=== PATIENT | male | born 1950 | race Hispanic/Latino ===

== ENCOUNTER 2021-12-05 07:19 | Inpatient (IN) | payer MEDICARE ==
--- NOTE | 2021-12-05 08:11 | Emergency Department Report ---
ED General Adult HPI - General Chief complaint: Back Pain/Injury Stated complaint: LEFT KIDNEY PAIN Time Seen by Provider: 12/05/21 08:00 Source: patient, EMS Mode of arrival: Stretcher Limitations: Physical Limitation - History of Present Illness Initial comments: The patient presents to the emergency department via EMS from a local rehab facility for left flank pain. The Patient is a resident at [facility] for rehabilitation was sent to the emergency department due to left flank pain not improved with opioid medications at the facility. Patient states the pain has been present for the last day and describes it as sharp in nature. He denies any abdominal pain or chest pain. -: Sudden Radiation: non-radiation Severity scale (0 -10): 8 Consistency: constant Improves with: none Worsens with: none Associated Symptoms: denies other symptoms Treatments Prior to Arrival: none - Related Data Allergies Allergy/AdvReac Type Severity Reaction Status Date / Time No Known Allergies Allergy Unverified 12/05/21 11:14 ED Review of Systems ROS: Stated complaint: LEFT KIDNEY PAIN Other details as noted in HPI Comment: All other systems reviewed and negative Constitutional: denies: chills, fever Eyes: denies: eye pain, eye discharge, vision change ENT: denies: ear pain, throat pain Respiratory: denies: cough, shortness of breath, wheezing Cardiovascular: denies: chest pain, palpitations Endocrine: no symptoms reported Gastrointestinal: denies: abdominal pain, nausea, diarrhea Genitourinary: denies: urgency, dysuria Musculoskeletal: denies: back pain, joint swelling, arthralgia Skin: denies: rash, lesions Neurological: denies: headache, weakness, paresthesias Psychiatric: denies: anxiety, depression Hematological/Lymphatic: denies: easy bleeding, easy bruising ED Past Medical Hx - Past Medical History Hx Hypertension: Yes Hx CVA: Yes Hx Congestive Heart Failure: Yes Hx Psychiatric Treatment: Yes (pschizo, anxiety) Additional medical history: hemiplegia, hemiparesis, left ED Physical Exam - General Limitations: Physical Limitation General appearance: alert, in no apparent distress - Head Head exam: Present: atraumatic, normocephalic - Eye Eye exam: Present: normal appearance, PERRL, EOMI - ENT ENT exam: Present: mucous membranes moist - Neck Neck exam: Present: normal inspection - Respiratory Respiratory exam: Present: normal lung sounds bilaterally. Absent: respiratory distress - Cardiovascular Cardiovascular Exam: Present: normal rhythm, tachycardia. Absent: systolic murmur, diastolic murmur, rubs, gallop - GI/Abdominal GI/Abdominal exam: Present: soft, normal bowel sounds. Absent: distended, tenderness - Rectal Rectal exam: Present: deferred - Extremities Exam Extremities exam: Present: normal inspection - Back Exam Back exam: Present: normal inspection - Neurological Exam Neurological exam: Present: alert, oriented X3, CN II-XII intact. Absent: motor sensory deficit - Psychiatric Psychiatric exam: Present: normal affect, normal mood - Skin Skin exam: Present: warm, dry, intact, normal color. Absent: rash ED Course Vital Signs 12/05/21 12/05/21 12/05/21 07:32 07:56 07:59 Temperature 98.8 F 98.2 F Pulse Rate 80 118 H Respiratory 16 20 Rate Blood Pressure Blood Pressure 130/64 147/93 [Left] O2 Sat by Pulse 97 98 Oximetry 12/05/21 12/05/21 12/05/21 08:06 08:15 08:30 Temperature Pulse Rate 127 H 109 H 107 H Respiratory 14 28 H 21 Rate Blood Pressure 147/90 147/90 Blood Pressure [Left] O2 Sat by Pulse 98 99 Oximetry 12/05/21 12/05/21 12/05/21 08:52 09:00 09:15 Temperature Pulse Rate 103 H 101 H 103 H Respiratory 25 H 25 H 23 Rate Blood Pressure 148/91 148/91 135/84 Blood Pressure [Left] O2 Sat by Pulse 100 97 Oximetry 12/05/21 12/05/21 12/05/21 09:17 09:20 09:30 Temperature 98.4 F Pulse Rate 117 H 108 H Respiratory 22 25 H Rate Blood Pressure 134/85 135/84 Blood Pressure [Left] O2 Sat by Pulse 97 98 96 Oximetry 12/05/21 12/05/21 09:45 10:46 Temperature Pulse Rate 109 H 111 H Respiratory 26 H 21 Rate Blood Pressure 131/85 131/85 Blood Pressure [Left] O2 Sat by Pulse 97 75 L Oximetry ED Medical Decision Making - Lab Data Result diagrams: 12/05/21 08:10 12/05/21 08:10 Lab Results 12/05/21 12/05/21 12/05/21 Range/Units 08:10 08:10 08:10 WBC 17.1 H (4.5-11.0) K/mm3 RBC 4.37 (3.65-5.03) M/mm3 Hgb 12.9 (11.8-15.2) gm/dl Hct 39.9 (35.5-45.6) % MCV 91 (84-94) fl MCH 30 (28-32) pg MCHC 32 (32-34) % RDW 14.8 (13.2-15.2) % Plt Count 357 (140-440) K/mm3 Lymph % (Auto) 5.6 L (13.4-35.0) % [place] % (Auto) 6.0 (0.0-7.3) % Eos % (Auto) 0.1 (0.0-4.3) % Baso % (Auto) 0.3 (0.0-1.8) % Lymph # (Auto) 1.0 L (1.2-5.4) K/mm3 [place] # (Auto) 1.0 H (0.0-0.8) K/mm3 Eos # (Auto) 0.0 (0.0-0.4) K/mm3 Baso # (Auto) 0.0 (0.0-0.1) K/mm3 Seg Neutrophils % 88.0 H (40.0-70.0) % Seg Neutrophils # 15.1 H (1.8-7.7) K/mm3 Sodium 142 (137-145) mmol/L Potassium 3.5 L (3.6-5.0) mmol/L Chloride 103.4 (98-107) mmol/L Carbon Dioxide 25 (22-30) mmol/L Anion Gap 17 mmol/L BUN 19 (9-20) mg/dL Creatinine 1.1 (0.8-1.3) mg/dL Estimated GFR > 60 ml/min BUN/Creatinine Ratio 17 % Glucose 114 H (75-100) mg/dL Lactic Acid 1.50 (0.7-2.0) mmol/L Calcium 10.3 H (8.4-10.2) mg/dL Total Bilirubin 0.40 (0.1-1.2) mg/dL AST 20 (5-40) units/L ALT 10 (7-56) units/L Alkaline Phosphatase 123 (35-129) units/L Total Protein 8.3 H (6.3-8.2) g/dL Albumin 4.3 (3.9-5) g/dL Albumin/Globulin Ratio 1.1 % Urine Color (Yellow) Urine Turbidity (Clear) Urine pH (5.0-7.0) Ur Specific [place] (1.003-1.030) Urine Protein (Negative) mg/dL Urine Glucose (UA) (Negative) mg/dL Urine Ketones (Negative) mg/dL Urine Blood (Negative) Urine Nitrite (Negative) Urine Bilirubin (Negative) Urine Urobilinogen (<2.0) mg/dL Ur Leukocyte Esterase (Negative) Urine WBC (Auto) (0.0-6.0) /HPF Urine RBC (Auto) (0.0-6.0) /HPF U Epithel Cells (Auto) (0-13.0) /HPF Urine Mucus /HPF 12/05/21 Range/Units 10:53 WBC (4.5-11.0) K/mm3 RBC (3.65-5.03) M/mm3 Hgb (11.8-15.2) gm/dl Hct (35.5-45.6) % MCV (84-94) fl MCH (28-32) pg MCHC (32-34) % RDW (13.2-15.2) % Plt Count (140-440) K/mm3 Lymph % (Auto) (13.4-35.0) % [place] % (Auto) (0.0-7.3) % Eos % (Auto) (0.0-4.3) % Baso % (Auto) (0.0-1.8) % Lymph # (Auto) (1.2-5.4) K/mm3 [place] # (Auto) (0.0-0.8) K/mm3 Eos # (Auto) (0.0-0.4) K/mm3 Baso # (Auto) (0.0-0.1) K/mm3 Seg Neutrophils % (40.0-70.0) % Seg Neutrophils # (1.8-7.7) K/mm3 Sodium (137-145) mmol/L Potassium (3.6-5.0) mmol/L Chloride (98-107) mmol/L Carbon Dioxide (22-30) mmol/L Anion Gap mmol/L BUN (9-20) mg/dL Creatinine (0.8-1.3) mg/dL Estimated GFR ml/min BUN/Creatinine Ratio % Glucose (75-100) mg/dL Lactic Acid (0.7-2.0) mmol/L Calcium (8.4-10.2) mg/dL Total Bilirubin (0.1-1.2) mg/dL AST (5-40) units/L ALT (7-56) units/L Alkaline Phosphatase (35-129) units/L Total Protein (6.3-8.2) g/dL Albumin (3.9-5) g/dL Albumin/Globulin Ratio % Urine Color Straw (Yellow) Urine Turbidity Cloudy (Clear) Urine pH 8.0 H (5.0-7.0) Ur Specific [place] 1.010 (1.003-1.030) Urine Protein 30 mg/dl (Negative) mg/dL Urine Glucose (UA) Negative (Negative) mg/dL Urine Ketones Negative (Negative) mg/dL Urine Blood Small A (Negative) Urine Nitrite Positive (Negative) Urine Bilirubin Negative (Negative) Urine Urobilinogen < 2.0 (<2.0) mg/dL Ur Leukocyte Esterase Moderate (Negative) Urine WBC (Auto) 147.0 H (0.0-6.0) /HPF Urine RBC (Auto) 69.0 (0.0-6.0) /HPF U Epithel Cells (Auto) 1.0 (0-13.0) /HPF Urine Mucus Few /HPF - Radiology Data Radiology results: report reviewed - Medical Decision Making Patient given IV antibiotics Results discussed with patient Critical Care Time: Yes Critical care time in (mins) excluding proc time.: 35 Critical care attestation.: If time is entered above; I have spent that time in minutes in the direct care of this critically ill patient, excluding procedure time. ED Disposition Clinical Impression: Sepsis, UTI (urinary tract infection), Leukocytosis Disposition: 01 HOME / SELF CARE / HOMELESS Is pt being admited?: Yes Does the pt Need Aspirin: No Condition: Fair
[2021-12-05 08:27] LABS: Basophils % (Auto) 0.3 % (0.0-1.8); Eosinophils % (Auto) 0.1 % (0.0-4.3); Hematocrit 39.9 % (35.5-45.6); Hemoglobin 12.9 gm/dl (11.8-15.2); Lymphocytes % (Auto) 5.6 % (13.4-35.0); Mean Corpuscular HGB Conc 32 % (32-34); Mean Corpuscular Volume 91 fl (84-94); Platelet Count 357 K/mm3 (140-440); Red Blood Count 4.37 M/mm3 (3.65-5.03); Red Cell Distribution Width 14.8 % (13.2-15.2)
[2021-12-05 08:53] LABS: Alanine Aminotransferase 10 units/L (7-56); Albumin 4.3 g/dL (3.9-5); BUN/Creatinine Ratio 17; Blood Urea Nitrogen 19 mg/dL (9-20); Calcium 10.3 mg/dL (8.4-10.2); Hemolysis Index 3
--- NOTE | 2021-12-05 09:00 | Cat Scan Report ---
CT ABDOMEN AND PELVIS WITH CONTRAST INDICATION / CLINICAL INFORMATION: left flank pain. TECHNIQUE: Axial CT images were obtained through the abdomen and pelvis after IV contrast. All CT sc ans at this location are performed using CT dose reduction for ALARA by means of automated exposure c ontrol. COMPARISON: None available. FINDINGS: LOWER CHEST: Calcified left ventricular aneurysm. Small hiatal hernia. LIVER: No significant abnormality. GALLBLADDER: Calcified stone. BILE DUCTS: No significant abnormality. PANCREAS: No significant abnormality. SPLEEN: No significant abnormality. ADRENALS: No significant abnormality. RIGHT KIDNEY / URETER: No significant abnormality. LEFT KIDNEY / URETER: Distention of the renal collecting system and ureter. Mild adjacent inflammatio n. No distal obstructing stone. STOMACH / SMALL BOWEL: No significant abnormality. COLON: No significant abnormality. APPENDIX: No significant abnormality. PERITONEUM: No free fluid. No free air. No fluid collection. LYMPH NODES: Mild atherosclerotic ectasia. VASCULAR STRUCTURES: No significant abnormality. URINARY BLADDER: 5 mm stone in the bladder base on the right. REPRODUCTIVE ORGANS: No significant abnormality. ADDITIONAL FINDINGS: None. SKELETAL SYSTEM: Underlying osteopenia. Previous fixation at the left pelvis and right hip. Chronic a ppearing wedging at L1, L2 and L4. IMPRESSION: 1. Recently passed left renal stone with residual distention of the collecting system and ureter. The stone now lies within the bladder on the right. 2. Calcified left ventricular aneurysm. 3. Small hiatal hernia. 4. Calcified gallstone. Signer Name: Juan Carlos Rogers MD Signed: 12/05/2021 8:55 AM Workstation Name: [id number]
[2021-12-05 11:35] LABS: Bilirubin,Urine Negative (Negative); Blood,Urine Small (Negative); Color,Urine Straw (Yellow); Urobilinogen,Urine < 2.0 mg/dL (<2.0)
[2021-12-05 11:41] LABS: Mucus,Urine FEW /HPF
[2021-12-05] MEDS ORDERED: LIDOCAINE-MPF (1%) 10 MG/1 ML VIAL 5 ML INFILTRATI ONE (12:07)
[2021-12-05] MEDS ORDERED: cefTRIAXone/NS 2 GM/100 ML 2 GM/100 ML BAG IV SCH (13:00)
[2021-12-05] MEDS ORDERED: HYDROmorphone 0.5 MG/0.5 ML INJ IV PRN (13:19)
[2021-12-05] MEDS ORDERED: ACETAMINOPHEN 325 MG TAB PO PRN (13:19)
[2021-12-05] MEDS ORDERED: SODIUM CHLORIDE 0.9% 1000 ML IV SOLN IV ONE (13:19)
[2021-12-05] MEDS ORDERED: ONDANSETRON 4 MG/2 ML INJ IV PRN (13:19)
[2021-12-05] MEDS ORDERED: ALBUTEROL 2.5 MG/3 ML NEBU IH PRN (13:19)
[2021-12-05] MEDS: CEFEPIME/NS 2 GM/100 ML 2 GM/100 ML BAG IV SCH (14:28)
--- NOTE | 2021-12-05 14:31 | History and Physical Report ---
History of Present Illness Date of admission: 12/05/21 13:19 Chief complaint: My side hurts History of present illness: 71 YO Male [facility] Facility Resident at [facility] with Vascular Dementia, Cerebral Atherosclerosis, CVA with LHP, Schizophrenia, MICHELLE, HTN, CHF presents to ED for evaluation. Pt has diminished cognition and provides minimal history. Patient reports reports "my side hurts". Additional history taken from ED staff, EMS staff, as well as snf facility staff. Patient reported flank pain today. EMS was notified and upon arrival t he patient was found to be in distress and subsequent transported to [facility] for further care and evaluation of the aforementioned symptoms. The patient was seen and evaluated in the emergency department. All lab and imaging studies reviewed. Patient found to have sepsis suspected secondary to urinary tract infection. Patient admitted to medical floor and initiated on sepsis protocol. No reports of fever, chills, chest pain, palpitation, productive cough, skin rash, recent contact, known exposure to COVID-19. No prior admission for review. No medication listed at time of admission for reconciliation. Advanced care planning conducted in ED. Patient has diminished cognition but has a posi tive gag reflex and is able to protect his airway without difficulty at the time my evaluation. Past History Past Medical History: heart failure, hypertension, stroke Past Surgical History: No surgical history, Other (Reviewed) Social history: single. denies: smoking, alcohol abuse, prescription drug abuse, IV drug use Family history: denies: diabetes, hypertension Medications and Allergies Allergies Allergy/AdvReac Type Severity Reaction Status Date / Time No Known Allergies Allergy Unverified 12/05/21 11:14 Active Meds: Active Medications Acetaminophen (Acetaminophen 325 Mg Tab) 650 mg PO Q4H PRN PRN Reason: Pain MILD(1-3)/Fever >100.5/BOYCE Albuterol (Albuterol 2.5 Mg/3 Ml Nebu) 2.5 mg IH Q4HRT PRN PRN Reason: Shortness Of Breath Hydromorphone HCl (Hydromorphone 0.5 Mg/0.5 Ml Inj) 0.5 mg IV Q23H PRN PRN Reason: Pain , Severe (7-10) Ceftriaxone Sodium (Rocephin/Ns 2 Gm/100 Ml) 2 gm in 100 mls @ 200 mls/hr IV ONCE@1300 MIHAELA Stop: 12/05/21 16:00 Last Admin: 12/05/21 13:08 Dose: 200 mls/hr Cefepime HCl (Cefepime/Ns 2 Gm/100 Ml) 2 gm in 100 mls @ 200 mls/hr IV Q12H [facility]; Protocol Ondansetron HCl (Ondansetron 4 Mg/2 Ml Inj) 4 mg IV Q8H PRN PRN Reason: Nausea And Vomiting Oxycodone/Acetaminophen (Oxycodone /Acetaminophen 5-325mg Tab) 1 tab PO Q6H PRN PRN Reason: Pain, Moderate (4-6) Sodium Chloride (Sodium Chloride 0.9% 10 Ml Flush Syringe) 10 ml IV BID MIHAELA Sodium Chloride (Sodium Chloride 0.9% 10 Ml Flush Syringe) 10 ml IV PRN PRN PRN Reason: LINE FLUSH Review of Systems ROS unobtainable: due to mental status Exam - Constitutional Vitals: Temp Pulse Resp BP Pulse Ox 98.4 F 91 H 20 129/73 97 12/05/21 09:20 12/05/21 13:15 12/05/21 13:15 12/05/21 13:15 12/05/21 13:15 General appearance: Present: mild distress - EENT Eyes: Present: PERRL ENT: hearing intact, clear oral mucosa - Neck Neck: Present: supple, normal ROM - Respiratory Respiratory effort: normal Respiratory: bilateral: CTA - Cardiovascular Heart Sounds: Present: S1 & S2. Absent: rub, click - Extremities Extremities: pulses symmetrical, No edema Peripheral Pulses: abnormal (Capillary refill greater than 3.5 seconds) - Abdominal General gastrointestinal: Present: soft, non-tender, non-distended, normal bowel sounds Male genitourinary: Present: normal - Integumentary Integumentary: Present: dry, clammy, decreased turgor - Musculoskeletal Musculoskeletal: left sided weakness, generalized weakness - Psychiatric Psychiatric: cooperative - Neurologic Neurologic: CNII-XII intact, moves all extremities Results - Labs CBC & Chem 7: 12/05/21 08:10 12/05/21 08:10 Labs: Abnormal lab results 12/05/21 12/05/21 12/05/21 Range/Units 08:10 08:10 10:53 WBC 17.1 H (4.5-11.0) K/mm3 Lymph % (Auto) 5.6 L (13.4-35.0) % Lymph # (Auto) 1.0 L (1.2-5.4) K/mm3 [place] # (Auto) 1.0 H (0.0-0.8) K/mm3 Seg Neutrophils % 88.0 H (40.0-70.0) % Seg Neutrophils # 15.1 H (1.8-7.7) K/mm3 Potassium 3.5 L (3.6-5.0) mmol/L Glucose 114 H (75-100) mg/dL Calcium 10.3 H (8.4-10.2) mg/dL Total Protein 8.3 H (6.3-8.2) g/dL Urine pH 8.0 H (5.0-7.0) Urine Blood Small A (Negative) Urine WBC (Auto) 147.0 H (0.0-6.0) /HPF Assessment and Plan - Patient Problems (1) Sepsis Current Visit: Yes Status: Acute Plan to address problem: Sepsis protocol: Chest x-ray, urinalysis, CBC, CMP, IV antibiotic therapy, IV fluid resuscitation therapy, monitor urine output every shift, monitor fluid balance, serial lactic acid level, blood culture, maintain mean arterial pressure greater than or equal to 65. (2) UTI (urinary tract infection) Current Visit: Yes Status: Acute Qualifiers: Encounter type: initial encounter Plan to address problem: Urinalysis, IV antibiotic therapy, supportive care. (3) Vascular dementia Current Visit: Yes Status: Acute Qualifiers: Dementia behavioral disturbance: without behavioral disturbance Qualified Code(s): F01.50 - Vascular dementia without behavioral disturbance Plan to address problem: Verbal prompting, verbal redirection, benzodiazepine therapy as clinical indicated. (4) Cerebral atherosclerosis Current Visit: Yes Status: Acute Plan to address problem: Risk factor reduction, antiplatelet therapy as clinically indicated. (5) Hypertension Current Visit: Yes Status: Acute Qualifiers: Hypertension type: primary hypertension Qualified Code(s): I10 - Essential (primary) hypertension Plan to address problem: Monitor blood pressure every shift, continue medical management. (6) CHF (congestive heart failure) Current Visit: Yes Status: Acute Qualifiers: Heart failure type: systolic Heart failure chronicity: chronic Qualified Code(s): I50.22 - Chronic systolic (congestive) heart failure Plan to address problem: No acute exacerbation at this time, continue supportive care. (7) DVT prophylaxis Current Visit: Yes Status: Acute Plan to address problem: SCD to bilateral lower extremities while in bed, prophylactic anticoagulation. (8) Advance care planning Current Visit: Yes Status: Acute Plan to address problem: Disease education done, care plan discussed, diagnosis discussed, prognosis discussed, patient is full code. +30 minutes. (9) Preventative health care Current Visit: Yes Status: Acute Plan to address problem: Patient counseled regarding medication compliance, compliance with care, and home safety. +30 minutes.
[2021-12-05] MEDS: HEPARIN 5,000 UNIT/1 ML VIAL SUB-Q SCH (22:37)
[2021-12-06] MEDS: SODIUM CHLORIDE 0.9% 1000 ML 1,000 ML IV SCH ×2 (02:00→16:31)
[2021-12-06] MEDS: CEFEPIME/NS 2 GM/100 ML 2 GM/100 ML BAG IV SCH ×2 (02:40→12:59)
[2021-12-06 05:39] LABS: Basophils % (Auto) 0.3 % (0.0-1.8); Hematocrit 36.4 % (35.5-45.6); Hemoglobin 11.6 gm/dl (11.8-15.2); Lymphocytes # (Auto) 1.2 K/mm3 (1.2-5.4); Mean Corpuscular HGB Conc 32 % (32-34); Mean Corpuscular Volume 92 fl (84-94); Platelet Count 297 K/mm3 (140-440); Red Blood Count 3.96 M/mm3 (3.65-5.03); Red Cell Distribution Width 15.5 % (13.2-15.2)
[2021-12-06 06:04] LABS: BUN/Creatinine Ratio 15; Blood Urea Nitrogen 17 mg/dL (9-20); Calcium 9.2 mg/dL (8.4-10.2); Hemolysis Index 0
[2021-12-06] MEDS: oxyCODONE /ACETAMINOPHEN 5-325MG TAB PO PRN ×2 (09:31→16:31)
[2021-12-06] MEDS: HEPARIN 5,000 UNIT/1 ML VIAL SUB-Q SCH ×2 (09:32→21:58)
--- NOTE | 2021-12-06 09:44 | Progress Note ---
Assessment and Plan Assessment and plan: 71 YO Male [facility] Facility Resident at [facility] with Vascular Dementia, Cerebral Atherosclerosis, CVA with LHP, Schizophrenia, MICHELLE, HTN, CHF presents to ED for evaluation of flank pain the day [employer]. EMS was notified and upon arrival the patient was found to be in distress and subsequent transported to [facility] for further care and evaluation of the aforementioned symptoms. The patient was seen and evaluated in the emergency department. All lab and imaging studies reviewed. Patient found to have sepsis suspected secondary to urinary tract infection. Patient admitted to medical floor and initiated on sepsis protocol. Sepsis UTI Vascular dementia Cerebral atherosclerosis 12/06/2021. Patient admitted with sepsis and UTI. We will follow-up blood and urine cultures. Continue IV antibiotics and monitor closely. Patient does have lactic acidosis as well as leukocytosis. Continue to monitor laboratories for improvement History Interval history: No new issues overnight Hospitalist Physical - Constitutional Vitals: Temp Pulse Resp BP Pulse Ox 98.4 F 65 12 129/81 99 12/06/21 04:00 12/06/21 02:01 12/06/21 02:01 12/06/21 02:01 12/06/21 09:22 General appearance: Present: no acute distress - EENT Eyes: Present: PERRL, EOM intact ENT: hearing intact, clear oral mucosa, dentition normal - Neck Neck: Present: supple, normal ROM - Respiratory Respiratory effort: normal Respiratory: bilateral: CTA - Cardiovascular Rhythm: regular Heart Sounds: Present: S1 & S2. Absent: gallop, rub - Extremities Extremities: no ischemia, No edema, Full ROM - Abdominal General gastrointestinal: soft, non-tender, non-distended, normal bowel sounds - Integumentary Integumentary: Present: clear, warm, dry - Neurologic Neurologic: CNII-XII intact, moves all extremities Results - Labs CBC & Chem 7: 12/06/21 04:34 12/06/21 04:34 Labs: Laboratory Last Values WBC 16.7 K/mm3 (4.5-11.0) H 12/06/21 04:34 RBC 3.96 M/mm3 (3.65-5.03) 12/06/21 04:34 Hgb 11.6 gm/dl (11.8-15.2) L 12/06/21 04:34 Hct 36.4 % (35.5-45.6) 12/06/21 04:34 MCV 92 fl (84-94) 12/06/21 04:34 MCH 29 pg (28-32) 12/06/21 04:34 MCHC 32 % (32-34) 12/06/21 04:34 RDW 15.5 % (13.2-15.2) H 12/06/21 04:34 Plt Count 297 K/mm3 (140-440) 12/06/21 04:34 Lymph % (Auto) 7.0 % (13.4-35.0) L 12/06/21 04:34 [place] % (Auto) 6.0 % (0.0-7.3) 12/06/21 04:34 Eos % (Auto) 0.0 % (0.0-4.3) 12/06/21 04:34 Baso % (Auto) 0.3 % (0.0-1.8) 12/06/21 04:34 Lymph # (Auto) 1.2 K/mm3 (1.2-5.4) 12/06/21 04:34 [place] # (Auto) 1.0 K/mm3 (0.0-0.8) H 12/06/21 04:34 Eos # (Auto) 0.0 K/mm3 (0.0-0.4) 12/06/21 04:34 Baso # (Auto) 0.0 K/mm3 (0.0-0.1) 12/06/21 04:34 Seg Neutrophils % 86.7 % (40.0-70.0) H 12/06/21 04:34 Seg Neutrophils # 14.5 K/mm3 (1.8-7.7) H 12/06/21 04:34 Sodium 141 mmol/L (137-145) 12/06/21 04:34 Potassium 3.6 mmol/L (3.6-5.0) 12/06/21 04:34 Chloride 105.6 mmol/L (98-107) 12/06/21 04:34 Carbon Dioxide 22 mmol/L (22-30) 12/06/21 04:34 Anion Gap 17 mmol/L 12/06/21 04:34 BUN 17 mg/dL (9-20) 12/06/21 04:34 Creatinine 1.1 mg/dL (0.8-1.3) 12/06/21 04:34 Estimated GFR > 60 ml/min 12/06/21 04:34 BUN/Creatinine Ratio 15 % 12/06/21 04:34 Glucose 170 mg/dL (75-100) H 12/06/21 04:34 Lactic Acid 3.50 mmol/L (0.7-2.0) H* 12/06/21 07:05 Calcium 9.2 mg/dL (8.4-10.2) 12/06/21 04:34 Total Bilirubin 0.40 mg/dL (0.1-1.2) 12/05/21 08:10 AST 20 units/L (5-40) 12/05/21 08:10 ALT 10 units/L (7-56) 12/05/21 08:10 Alkaline Phosphatase 123 units/L (35-129) 12/05/21 08:10 Total Protein 8.3 g/dL (6.3-8.2) H 12/05/21 08:10 Albumin 4.3 g/dL (3.9-5) 12/05/21 08:10 Albumin/Globulin Ratio 1.1 % 12/05/21 08:10 Urine Color Straw (Yellow) 12/05/21 10:53 Urine Turbidity Cloudy (Clear) 12/05/21 10:53 Urine pH 8.0 (5.0-7.0) H 12/05/21 10:53 Ur Specific [place] 1.010 (1.003-1.030) 12/05/21 10:53 Urine Protein 30 mg/dl mg/dL (Negative) 12/05/21 10:53 Urine Glucose (UA) Negative mg/dL (Negative) 12/05/21 10:53 Urine Ketones Negative mg/dL (Negative) 12/05/21 10:53 Urine Blood Small (Negative) A 12/05/21 10:53 Urine Nitrite Positive (Negative) 12/05/21 10:53 Urine Bilirubin Negative (Negative) 12/05/21 10:53 Urine Urobilinogen < 2.0 mg/dL (<2.0) 12/05/21 10:53 Ur Leukocyte Esterase Moderate (Negative) 12/05/21 10:53 Urine WBC (Auto) 147.0 /HPF (0.0-6.0) H 12/05/21 10:53 Urine RBC (Auto) 69.0 /HPF (0.0-6.0) 12/05/21 10:53 U Epithel Cells (Auto) 1.0 /HPF (0-13.0) 12/05/21 10:53 Urine Mucus Few /HPF 12/05/21 10:53 Blood Type O POSITIVE 12/05/21 21:00 Antibody Screen Negative 12/05/21 21:00 Microbiology: Microbiology 12/05/21 08:10 Peripheral/Venous Blood Culture - Preliminary 12/05/21 08:10 Peripheral/Venous Blood Culture - Preliminary Culture in Progress Snyder/IV: Voiding Method Urinal Active Medications - Current Medications Current Medications: Generic Name Dose Route Start Last Admin Trade Name Freq PRN Reason Stop Dose Admin Acetaminophen 650 mg 12/05/21 13:19 Acetaminophen 325 Mg Tab PO Q4H PRN Pain MILD(1-3)/Fever >100.5/BOYCE Albuterol 2.5 mg 12/05/21 13:19 Albuterol 2.5 Mg/3 Ml Nebu IH Q4HRT PRN Shortness Of Breath Heparin Sodium (Porcine) 5,000 unit 12/05/21 22:00 12/06/21 09:32 Heparin 5,000 Unit/1 Ml Vial SUB-Q 5,000 unit Q12HR MIHAELA Administration Hydromorphone HCl 0.5 mg 12/05/21 13:19 12/06/21 02:57 Hydromorphone 0.5 Mg/0.5 Ml Inj IV 0.5 mg Q23H PRN Administration Pain , Severe (7-10) Cefepime HCl 2 gm in 100 mls @ 200 mls/hr 12/05/21 14:00 12/06/21 02:40 Cefepime/Ns 2 Gm/100 Ml IV 200 mls/hr Q12H MIHAELA Administration Protocol Sodium Chloride 1,000 mls @ 75 mls/hr 12/06/21 01:30 12/06/21 02:00 Nacl 0.9% 1000 Ml IV 75 mls/hr DIRECT MIHAELA Administration Ondansetron HCl 4 mg 12/05/21 13:19 Ondansetron 4 Mg/2 Ml Inj IV Q8H PRN Nausea And Vomiting Oxycodone/Acetaminophen 1 tab 12/05/21 13:19 12/06/21 09:31 Oxycodone /Acetaminophen 5-325mg Tab PO 1 tab Q6H PRN Administration Pain, Moderate (4-6) Sodium Chloride 10 ml 12/05/21 22:00 12/06/21 09:32 Sodium Chloride 0.9% 10 Ml Flush Syringe IV 10 ml BID MHIAELA Administration Sodium Chloride 10 ml 12/05/21 13:19 Sodium Chloride 0.9% 10 Ml Flush Syringe IV PRN PRN LINE FLUSH
[2021-12-07] MEDS: CEFEPIME/NS 2 GM/100 ML 2 GM/100 ML BAG IV SCH ×2 (02:33→17:33)
[2021-12-07 07:04] LABS: Basophils % (Auto) 0.3 % (0.0-1.8); Hematocrit 31.9 % (35.5-45.6); Hemoglobin 10.6 gm/dl (11.8-15.2); Lymphocytes # (Auto) 1.2 K/mm3 (1.2-5.4); Mean Corpuscular HGB Conc 33 % (32-34); Mean Corpuscular Volume 91 fl (84-94); Monocytes # (Auto) 0.6 K/mm3 (0.0-0.8); Platelet Count 197 K/mm3 (140-440); Red Blood Count 3.53 M/mm3 (3.65-5.03); Red Cell Distribution Width 15.8 % (13.2-15.2)
[2021-12-07 07:24] LABS: BUN/Creatinine Ratio 13; Blood Urea Nitrogen 12 mg/dL (9-20); Calcium 8.8 mg/dL (8.4-10.2); Hemolysis Index 0
[2021-12-07] MEDS: SODIUM CHLORIDE 0.9% 1000 ML 1,000 ML IV SCH ×2 (08:20→22:17)
--- NOTE | 2021-12-07 08:55 | Progress Note ---
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 EMS was notified and upon arrival the patient was found to be in distress and subsequent transported to [facility] for further care and evaluation of the aforementioned symptoms. The patient was seen and evaluated in the emergency department. All lab and imaging studies reviewed. Patient found to have sepsis suspected secondary to urinary tract infection. Patient admitted to medical floor and initiated on sepsis protocol. Sepsis UTI Vascular dementia Cerebral atherosclerosis 12/06/2021. Patient admitted with sepsis and UTI. We will follow-up blood and urine cultures. Continue IV antibiotics and monitor closely. Patient does have lactic acidosis as well as leukocytosis. Continue to monitor laboratories for improvement 12/07/2021. Continue IV antibiotics and follow-up blood cultures. Blood culture negative x24 hours. Lactic acidosis resolved. Follow-up urine culture History Interval history: No new issues overnight Hospitalist Physical - Constitutional Vitals: Temp Pulse Resp BP Pulse Ox 99.3 F 72 17 121/72 97 12/07/21 04:50 12/07/21 04:50 12/07/21 04:50 12/07/21 04:50 12/07/21 04:50 General appearance: Present: no acute distress - EENT Eyes: Present: PERRL, EOM intact ENT: hearing intact, clear oral mucosa, dentition normal - Neck Neck: Present: supple, normal ROM - Respiratory Respiratory effort: normal Respiratory: bilateral: CTA - Cardiovascular Rhythm: regular Heart Sounds: Present: S1 & S2. Absent: gallop, rub - Extremities Extremities: no ischemia, No edema, Full ROM - Abdominal General gastrointestinal: soft, non-tender, non-distended, normal bowel sounds - Integumentary Integumentary: Present: clear, warm, dry - Neurologic Neurologic: CNII-XII intact, moves all extremities Results - Labs CBC & Chem 7: 12/07/21 06:07 12/07/21 06:07 Labs: Laboratory Last Values WBC 9.9 K/mm3 (4.5-11.0) 12/07/21 06:07 RBC 3.53 M/mm3 (3.65-5.03) L 12/07/21 06:07 Hgb 10.6 gm/dl (11.8-15.2) L 12/07/21 06:07 Hct 31.9 % (35.5-45.6) L 12/07/21 06:07 MCV 91 fl (84-94) 12/07/21 06:07 MCH 30 pg (28-32) 12/07/21 06:07 MCHC 33 % (32-34) 12/07/21 06:07 RDW 15.8 % (13.2-15.2) H 12/07/21 06:07 Plt Count 197 K/mm3 (140-440) 12/07/21 06:07 Lymph % (Auto) 12.0 % (13.4-35.0) L 12/07/21 06:07 [place] % (Auto) 6.0 % (0.0-7.3) 12/07/21 06:07 Eos % (Auto) 0.0 % (0.0-4.3) 12/07/21 06:07 Baso % (Auto) 0.3 % (0.0-1.8) 12/07/21 06:07 Lymph # (Auto) 1.2 K/mm3 (1.2-5.4) 12/07/21 06:07 [place] # (Auto) 0.6 K/mm3 (0.0-0.8) 12/07/21 06:07 Eos # (Auto) 0.0 K/mm3 (0.0-0.4) 12/07/21 06:07 Baso # (Auto) 0.0 K/mm3 (0.0-0.1) 12/07/21 06:07 Seg Neutrophils % 81.7 % (40.0-70.0) H 12/07/21 06:07 Seg Neutrophils # 8.1 K/mm3 (1.8-7.7) H 12/07/21 06:07 Sodium 139 mmol/L (137-145) 12/07/21 06:07 Potassium 3.2 mmol/L (3.6-5.0) L 12/07/21 06:07 Chloride 105.1 mmol/L (98-107) 12/07/21 06:07 Carbon Dioxide 22 mmol/L (22-30) 12/07/21 06:07 Anion Gap 15 mmol/L 12/07/21 06:07 BUN 12 mg/dL (9-20) 12/07/21 06:07 Creatinine 0.9 mg/dL (0.8-1.3) 12/07/21 06:07 Estimated GFR > 60 ml/min 12/07/21 06:07 BUN/Creatinine Ratio 13 % 12/07/21 06:07 Glucose 107 mg/dL (75-100) H 12/07/21 06:07 Lactic Acid 1.90 mmol/L (0.7-2.0) 12/06/21 11:28 Calcium 8.8 mg/dL (8.4-10.2) 12/07/21 06:07 Total Bilirubin 0.40 mg/dL (0.1-1.2) 12/05/21 08:10 AST 20 units/L (5-40) 12/05/21 08:10 ALT 10 units/L (7-56) 12/05/21 08:10 Alkaline Phosphatase 123 units/L (35-129) 12/05/21 08:10 Total Protein 8.3 g/dL (6.3-8.2) H 12/05/21 08:10 Albumin 4.3 g/dL (3.9-5) 12/05/21 08:10 Albumin/Globulin Ratio 1.1 % 12/05/21 08:10 Urine Color Straw (Yellow) 12/05/21 10:53 Urine Turbidity Cloudy (Clear) 12/05/21 10:53 Urine pH 8.0 (5.0-7.0) H 12/05/21 10:53 Ur Specific [place] 1.010 (1.003-1.030) 12/05/21 10:53 Urine Protein 30 mg/dl mg/dL (Negative) 12/05/21 10:53 Urine Glucose (UA) Negative mg/dL (Negative) 12/05/21 10:53 Urine Ketones Negative mg/dL (Negative) 12/05/21 10:53 Urine Blood Small (Negative) A 12/05/21 10:53 Urine Nitrite Positive (Negative) 12/05/21 10:53 Urine Bilirubin Negative (Negative) 12/05/21 10:53 Urine Urobilinogen < 2.0 mg/dL (<2.0) 12/05/21 10:53 Ur Leukocyte Esterase Moderate (Negative) 12/05/21 10:53 Urine WBC (Auto) 147.0 /HPF (0.0-6.0) H 12/05/21 10:53 Urine RBC (Auto) 69.0 /HPF (0.0-6.0) 12/05/21 10:53 U Epithel Cells (Auto) 1.0 /HPF (0-13.0) 12/05/21 10:53 Urine Mucus Few /HPF 12/05/21 10:53 Blood Type O POSITIVE 12/05/21 21:00 Antibody Screen Negative 12/05/21 21:00 Microbiology: Microbiology 12/05/21 08:10 Peripheral/Venous Blood Culture - Preliminary 12/05/21 08:10 Peripheral/Venous Blood Culture - Preliminary NO GROWTH AFTER 24 HOURS Snyder/IV: Voiding Method Condom Catheter Active Medications - Current Medications Current Medications: Generic Name Dose Route Start Last Admin Trade Name Freq PRN Reason Stop Dose Admin Acetaminophen 650 mg 12/05/21 13:19 Acetaminophen 325 Mg Tab PO Q4H PRN Pain MILD(1-3)/Fever >100.5/BOYCE Albuterol 2.5 mg 12/05/21 13:19 Albuterol 2.5 Mg/3 Ml Nebu IH Q4HRT PRN Shortness Of Breath Heparin Sodium (Porcine) 5,000 unit 12/05/21 22:00 12/06/21 21:58 Heparin 5,000 Unit/1 Ml Vial SUB-Q 5,000 unit Q12HR MIHAELA Administration Hydromorphone HCl 0.5 mg 12/05/21 13:19 12/06/21 02:57 Hydromorphone 0.5 Mg/0.5 Ml Inj IV 0.5 mg Q23H PRN Administration Pain , Severe (7-10) Cefepime HCl 2 gm in 100 mls @ 200 mls/hr 12/05/21 14:00 12/07/21 02:33 Cefepime/Ns 2 Gm/100 Ml IV 200 mls/hr Q12H MIHAELA Administration Protocol Sodium Chloride 1,000 mls @ 75 mls/hr 12/06/21 01:30 12/07/21 08:20 Nacl 0.9% 1000 Ml IV 75 mls/hr DIRECT MIHAELA Administration Ondansetron HCl 4 mg 12/05/21 13:19 Ondansetron 4 Mg/2 Ml Inj IV Q8H PRN Nausea And Vomiting Oxycodone/Acetaminophen 1 tab 12/05/21 13:19 12/06/21 16:31 Oxycodone /Acetaminophen 5-325mg Tab PO 1 tab Q6H PRN Administration Pain, Moderate (4-6) Sodium Chloride 10 ml 12/05/21 22:00 12/06/21 21:58 Sodium Chloride 0.9% 10 Ml Flush Syringe IV 10 ml BID MIHAELA Administration Sodium Chloride 10 ml 12/05/21 13:19 Sodium Chloride 0.9% 10 Ml Flush Syringe IV PRN PRN LINE FLUSH Nutrition/Malnutrition Assess - Dietary Evaluation Nutrition/Malnutrition Findings: Nutrition Notes Start: 12/06/21 14:05 Freq: Status: Active Protocol: Document 12/06/21 14:05 CHICO (Rec: 12/06/21 14:13 CHICO [id number]) Nutrition Notes 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 Pt from [place]. He consumed 50% of two meals today. Percent of energy/protein needs met: 66% energy 55% pro Burn Absent Trauma Absent Skin Integrity/Comment Mtaeus score: 13 Current % PO Fair (50-74%) Reduced Machine Ii Coremaker Strength Measurably Reduced (severe) #1 Nutrition Diagnosis Underweight Etiology advanced age, vascular dementia As Evidenced by Signs and Symptoms BMI 19.7 Is patient on ventilator? No Is Patient Ambulatory and/or Out of Bed No REE-([facility]-confined to bed) 1688.568 Kcal/Kg value to use for calculation 30 Approximate Energy Requirements Using 1914 kcal/Kg Calculation Used for Recommendations Kcal/kg Additional Notes Pro needs 1.2-1.5g/k-96g/ day Fluid needs 1ml/kcal Nutrition Intervention Change Diet Order: Continue current diet order Add Supplement/Snack (indicate name/kcal Ensure Enlive BID /protein ) Provides kCal: 700 Provides Protein (gm) 40 Goal #1 PO intake of meals plus ONS to meet 100% energy and pro needs Goal #2 Wt maintenance and/or gain Anticipated Discharge Needs: Continue ONS 1-2 times daily for wt maintenance Follow-Up By: 12/09/21 Additional Comments F/U: intakes (meals/ONS)
[2021-12-07] MEDS: oxyCODONE /ACETAMINOPHEN 5-325MG TAB PO PRN ×2 (12:47→22:11)
[2021-12-07] MEDS: HEPARIN 5,000 UNIT/1 ML VIAL SUB-Q SCH ×2 (12:47→22:12)
[2021-12-08] MEDS: CEFEPIME/NS 2 GM/100 ML 2 GM/100 ML BAG IV SCH ×2 (02:26→18:44)
[2021-12-08 05:15] LABS: Basophils # (Auto) 0.1 K/mm3 (0.0-0.1); Basophils % (Auto) 0.8 % (0.0-1.8); Eosinophils % (Auto) 0.5 % (0.0-4.3); Hematocrit 31.8 % (35.5-45.6); Hemoglobin 10.5 gm/dl (11.8-15.2); Lymphocytes # (Auto) 1.7 K/mm3 (1.2-5.4); Lymphocytes % (Auto) 23.2 % (13.4-35.0); Mean Corpuscular HGB Conc 33 % (32-34); Mean Corpuscular Volume 91 fl (84-94); Monocytes # (Auto) 0.7 K/mm3 (0.0-0.8); Monocytes % (Auto) 9.3 % (0.0-7.3); Platelet Count 179 K/mm3 (140-440); Red Blood Count 3.51 M/mm3 (3.65-5.03); Red Cell Distribution Width 15.6 % (13.2-15.2)
[2021-12-08 05:28] LABS: BUN/Creatinine Ratio 14; Blood Urea Nitrogen 11 mg/dL (9-20); Calcium 8.7 mg/dL (8.4-10.2); Hemolysis Index 1
[2021-12-08] MEDS: oxyCODONE /ACETAMINOPHEN 5-325MG TAB PO PRN ×3 (10:45→22:59)
[2021-12-08] MEDS: HEPARIN 5,000 UNIT/1 ML VIAL SUB-Q SCH ×2 (10:45→21:36)
--- NOTE | 2021-12-08 10:56 | Progress Note ---
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 EMS was notified and upon arrival the patient was found to be in distress and subsequent transported to [facility] for further care and evaluation of the aforementioned symptoms. The patient was seen and evaluated in the emergency department. All lab and imaging studies reviewed. Patient found to have sepsis suspected secondary to urinary tract infection. Patient admitted to medical floor and initiated on sepsis protocol. Sepsis UTI Vascular dementia Cerebral atherosclerosis 12/06/2021. Patient admitted with sepsis and UTI. We will follow-up blood and urine cultures. Continue IV antibiotics and monitor closely. Patient does have lactic acidosis as well as leukocytosis. Continue to monitor laboratories for improvement 12/07/2021. Continue IV antibiotics and follow-up blood cultures. Blood culture negative x24 hours. Lactic acidosis resolved. Follow-up urine culture 12/08/2021. Continue IV antibiotics and follow-up cultures. Blood cultures are negative x72 hours. Anticipate discharge back to [facility] in a.m. History Interval history: No new issues overnight Hospitalist Physical - Constitutional Vitals: Temp Pulse Resp BP Pulse Ox 98.6 F 65 18 151/71 97 12/08/21 06:19 12/08/21 06:21 12/08/21 06:19 12/08/21 06:19 12/08/21 06:21 General appearance: Present: no acute distress - EENT Eyes: Present: PERRL, EOM intact ENT: hearing intact, clear oral mucosa, dentition normal - Neck Neck: Present: supple, normal ROM - Respiratory Respiratory effort: normal Respiratory: bilateral: CTA - Cardiovascular Rhythm: regular Heart Sounds: Present: S1 & S2. Absent: gallop, rub - Extremities Extremities: no ischemia, No edema, Full ROM - Abdominal General gastrointestinal: soft, non-tender, non-distended, normal bowel sounds - Integumentary Integumentary: Present: clear, warm, dry - Neurologic Neurologic: CNII-XII intact, moves all extremities Results - Labs CBC & Chem 7: 12/08/21 03:07 12/08/21 03:07 Labs: Laboratory Last Values WBC 7.2 K/mm3 (4.5-11.0) 12/08/21 03:07 RBC 3.51 M/mm3 (3.65-5.03) L 12/08/21 03:07 Hgb 10.5 gm/dl (11.8-15.2) L 12/08/21 03:07 Hct 31.8 % (35.5-45.6) L 12/08/21 03:07 MCV 91 fl (84-94) 12/08/21 03:07 MCH 30 pg (28-32) 12/08/21 03:07 MCHC 33 % (32-34) 12/08/21 03:07 RDW 15.6 % (13.2-15.2) H 12/08/21 03:07 Plt Count 179 K/mm3 (140-440) 12/08/21 03:07 Lymph % (Auto) 23.2 % (13.4-35.0) 12/08/21 03:07 [place] % (Auto) 9.3 % (0.0-7.3) H 12/08/21 03:07 Eos % (Auto) 0.5 % (0.0-4.3) 12/08/21 03:07 Baso % (Auto) 0.8 % (0.0-1.8) 12/08/21 03:07 Lymph # (Auto) 1.7 K/mm3 (1.2-5.4) 12/08/21 03:07 [place] # (Auto) 0.7 K/mm3 (0.0-0.8) 12/08/21 03:07 Eos # (Auto) 0.0 K/mm3 (0.0-0.4) 12/08/21 03:07 Baso # (Auto) 0.1 K/mm3 (0.0-0.1) 12/08/21 03:07 Seg Neutrophils % 66.2 % (40.0-70.0) 12/08/21 03:07 Seg Neutrophils # 4.8 K/mm3 (1.8-7.7) 12/08/21 03:07 Sodium 140 mmol/L (137-145) 12/08/21 03:07 Potassium 3.1 mmol/L (3.6-5.0) L 12/08/21 03:07 Chloride 105.7 mmol/L (98-107) 12/08/21 03:07 Carbon Dioxide 24 mmol/L (22-30) 12/08/21 03:07 Anion Gap 13 mmol/L 12/08/21 03:07 BUN 11 mg/dL (9-20) 12/08/21 03:07 Creatinine 0.8 mg/dL (0.8-1.3) 12/08/21 03:07 Estimated GFR > 60 ml/min 12/08/21 03:07 BUN/Creatinine Ratio 14 % 12/08/21 03:07 Glucose 95 mg/dL (75-100) 12/08/21 03:07 Lactic Acid 1.90 mmol/L (0.7-2.0) 12/06/21 11:28 Calcium 8.7 mg/dL (8.4-10.2) 12/08/21 03:07 Total Bilirubin 0.40 mg/dL (0.1-1.2) 12/05/21 08:10 AST 20 units/L (5-40) 12/05/21 08:10 ALT 10 units/L (7-56) 12/05/21 08:10 Alkaline Phosphatase 123 units/L (35-129) 12/05/21 08:10 Total Protein 8.3 g/dL (6.3-8.2) H 12/05/21 08:10 Albumin 4.3 g/dL (3.9-5) 12/05/21 08:10 Albumin/Globulin Ratio 1.1 % 12/05/21 08:10 Urine Color Straw (Yellow) 12/05/21 10:53 Urine Turbidity Cloudy (Clear) 12/05/21 10:53 Urine pH 8.0 (5.0-7.0) H 12/05/21 10:53 Ur Specific [place] 1.010 (1.003-1.030) 12/05/21 10:53 Urine Protein 30 mg/dl mg/dL (Negative) 12/05/21 10:53 Urine Glucose (UA) Negative mg/dL (Negative) 12/05/21 10:53 Urine Ketones Negative mg/dL (Negative) 12/05/21 10:53 Urine Blood Small (Negative) A 12/05/21 10:53 Urine Nitrite Positive (Negative) 12/05/21 10:53 Urine Bilirubin Negative (Negative) 12/05/21 10:53 Urine Urobilinogen < 2.0 mg/dL (<2.0) 12/05/21 10:53 Ur Leukocyte Esterase Moderate (Negative) 12/05/21 10:53 Urine WBC (Auto) 147.0 /HPF (0.0-6.0) H 12/05/21 10:53 Urine RBC (Auto) 69.0 /HPF (0.0-6.0) 12/05/21 10:53 U Epithel Cells (Auto) 1.0 /HPF (0-13.0) 12/05/21 10:53 Urine Mucus Few /HPF 12/05/21 10:53 Blood Type O POSITIVE 12/05/21 21:00 Antibody Screen Negative 12/05/21 21:00 Microbiology: Microbiology 12/05/21 08:10 Peripheral/Venous Blood Culture - Preliminary NO GROWTH AFTER 72 HOURS Snyder/IV: Voiding Method Condom Catheter Active Medications - Current Medications Current Medications: Generic Name Dose Route Start Last Admin Trade Name Freq PRN Reason Stop Dose Admin Acetaminophen 650 mg 12/05/21 13:19 Acetaminophen 325 Mg Tab PO Q4H PRN Pain MILD(1-3)/Fever >100.5/BOYCE Albuterol 2.5 mg 12/05/21 13:19 Albuterol 2.5 Mg/3 Ml Nebu IH Q4HRT PRN Shortness Of Breath Heparin Sodium (Porcine) 5,000 unit 12/05/21 22:00 12/08/21 10:45 Heparin 5,000 Unit/1 Ml Vial SUB-Q 5,000 unit Q12HR MIHAELA Administration Hydromorphone HCl 0.5 mg 12/05/21 13:19 12/06/21 02:57 Hydromorphone 0.5 Mg/0.5 Ml Inj IV 0.5 mg Q23H PRN Administration Pain , Severe (7-10) Cefepime HCl 2 gm in 100 mls @ 200 mls/hr 12/05/21 14:00 12/08/21 02:26 Cefepime/Ns 2 Gm/100 Ml IV 200 mls/hr Q12H MIHAELA Administration Protocol Sodium Chloride 1,000 mls @ 75 mls/hr 12/06/21 01:30 12/07/21 22:17 Nacl 0.9% 1000 Ml IV 75 mls/hr DIRECT MIHAELA Administration Ondansetron HCl 4 mg 12/05/21 13:19 Ondansetron 4 Mg/2 Ml Inj IV Q8H PRN Nausea And Vomiting Oxycodone/Acetaminophen 1 tab 12/05/21 13:19 12/08/21 10:45 Oxycodone /Acetaminophen 5-325mg Tab PO 1 tab Q6H PRN Administration Pain, Moderate (4-6) Sodium Chloride 10 ml 12/05/21 22:00 12/08/21 10:46 Sodium Chloride 0.9% 10 Ml Flush Syringe IV 10 ml BID MIHAELA Administration Sodium Chloride 10 ml 12/05/21 13:19 Sodium Chloride 0.9% 10 Ml Flush Syringe IV PRN PRN LINE FLUSH Nutrition/Malnutrition Assess - Dietary Evaluation Nutrition/Malnutrition Findings: Nutrition Notes Start: 12/06/21 14:05 Freq: Status: Active Protocol: Document 12/06/21 14:05 CHICO (Rec: 12/06/21 14:13 CHICO [id number]) Nutrition Notes Need for Assessment generated from: mailroom courier,MST Initial or Follow up Assessment Current Diagnosis Sepsis,Hypertension,Heart Failure,Stroke Other Pertinent Diagnosis UTI, Vascular dementia, (L) hemiparesis, Schizophrenia, MICHELLE Current Diet Cardiac Labs/Tests BG 170 Pertinent Medications NS at 75ml/hr Height 5 ft 10.8 in Weight 63.8 kg [place] Body Weight (kg) 77.63 BMI 19.7 Weight Status Underweight Subjective/Other Information Pt screened for malnutrition risk. Pt from [place]. He consumed 50% of two meals today. Percent of energy/protein needs met: 66% energy 55% pro Burn Absent Trauma Absent Skin Integrity/Comment Mateus score: 13 Current % PO Fair (50-74%) Reduced Moisture Machine Tender Strength Measurably Reduced (severe) #1 Nutrition Diagnosis Underweight Etiology advanced age, vascular dementia As Evidenced by Signs and Symptoms BMI 19.7 Is patient on ventilator? No Is Patient Ambulatory and/or Out of Bed No REE-([facility]-confined to bed) 1688.568 Kcal/Kg value to use for calculation 30 Approximate Energy Requirements Using 1914 kcal/Kg Calculation Used for Recommendations Kcal/kg Additional Notes Pro needs 1.2-1.5g/k-96g/ day Fluid needs 1ml/kcal Nutrition Intervention Change Diet Order: Continue current diet order Add Supplement/Snack (indicate name/kcal Ensure Enlive BID /protein ) Provides kCal: 700 Provides Protein (gm) 40 Goal #1 PO intake of meals plus ONS to meet 100% energy and pro needs Goal #2 Wt maintenance and/or gain Anticipated Discharge Needs: Continue ONS 1-2 times daily for wt maintenance Follow-Up By: 12/09/21 Additional Comments F/U: intakes (meals/ONS)
[2021-12-08] MEDS: SODIUM CHLORIDE 0.9% 1000 ML 1,000 ML IV SCH (18:43)
[2021-12-09] MEDS: CEFEPIME/NS 2 GM/100 ML 2 GM/100 ML BAG IV SCH ×2 (01:37→13:49)
[2021-12-09 05:09] LABS: Basophils % (Auto) 0.5 % (0.0-1.8); Eosinophils # (Auto) 0.2 K/mm3 (0.0-0.4); Eosinophils % (Auto) 2.5 % (0.0-4.3); Hematocrit 30.7 % (35.5-45.6); Hemoglobin 10.3 gm/dl (11.8-15.2); Lymphocytes # (Auto) 1.9 K/mm3 (1.2-5.4); Lymphocytes % (Auto) 25.8 % (13.4-35.0); Mean Corpuscular HGB Conc 34 % (32-34); Mean Corpuscular Volume 89 fl (84-94); Monocytes # (Auto) 0.9 K/mm3 (0.0-0.8); Monocytes % (Auto) 11.4 % (0.0-7.3); Platelet Count 193 K/mm3 (140-440); Red Blood Count 3.44 M/mm3 (3.65-5.03); Red Cell Distribution Width 15.9 % (13.2-15.2)
[2021-12-09 05:19] LABS: Blood Urea Nitrogen 12 mg/dL (9-20); Calcium 8.7 mg/dL (8.4-10.2); Hemolysis Index 4
[2021-12-09 05:21] LABS: BUN/Creatinine Ratio 17
[2021-12-09] MEDS: POTASSIUM CHLORIDE 10 MEQ 10 MEQ/100 ML BAG IV SCH ×4 (06:21→12:51)
[2021-12-09] MEDS ORDERED: POTASSIUM CHLORIDE ER 20 MEQ TAB PO ONE (06:25)
[2021-12-09] MEDS: HEPARIN 5,000 UNIT/1 ML VIAL SUB-Q SCH ×2 (09:29→22:56)
[2021-12-09] MEDS: SODIUM CHLORIDE 0.9% 1000 ML 1,000 ML IV SCH ×2 (09:31→23:05)
--- NOTE | 2021-12-09 09:38 | Progress Note ---
Assessment and Plan Assessment and plan: 71 YO Male Half-Way Facility Resident at [facility] with Vascular Dementia, Cerebral Atherosclerosis, CVA with LHP, Schizophrenia, MICHELLE, HTN, CHF presents to ED for evaluation of flank pain the day MANAGER CORPORATE STRATEGY. EMS was notified and upon arrival the patient was found to be in distress and subsequent transported to [facility] for further care and evaluation of the aforementioned symptoms. The patient was seen and evaluated in the emergency department. All lab and imaging studies reviewed. Patient found to have sepsis suspected secondary to urinary tract infection. Patient admitted to medical floor and initiated on sepsis protocol. Sepsis UTI Hypokalemia Vascular dementia Cerebral atherosclerosis 12/06/2021. Patient admitted with sepsis and UTI. We will follow-up blood and urine cultures. Continue IV antibiotics and monitor closely. Patient does have lactic acidosis as well as leukocytosis. Continue to monitor laboratories for improvement 12/07/2021. Continue IV antibiotics and follow-up blood cultures. Blood culture negative x24 hours. Lactic acidosis resolved. Follow-up urine culture 12/08/2021. Continue IV antibiotics and follow-up cultures. Blood cultures are negative x72 hours. Anticipate discharge back to [facility] in a.m. 12/09/2021. Patient to have antibiotics completed today. However, patient with hypokalemia. Replete potassium and anticipate discharge back to [facility] if hyperkalemia resolved. History Interval history: No new issues overnight Hospitalist Physical - Constitutional Vitals: Temp Pulse Resp BP Pulse Ox 98.5 F 63 18 150/82 97 12/09/21 05:01 12/09/21 05:01 12/09/21 05:01 12/09/21 05:01 12/09/21 05:01 General appearance: Present: no acute distress - EENT Eyes: Present: PERRL, EOM intact ENT: hearing intact, clear oral mucosa, dentition normal - Neck Neck: Present: supple, normal ROM - Respiratory Respiratory effort: normal Respiratory: bilateral: CTA - Cardiovascular Rhythm: regular Heart Sounds: Present: S1 & S2. Absent: gallop, rub - Extremities Extremities: no ischemia, No edema, Full ROM - Abdominal General gastrointestinal: soft, non-tender, non-distended, normal bowel sounds - Integumentary Integumentary: Present: clear, warm, dry - Neurologic Neurologic: CNII-XII intact, moves all extremities Results - Labs CBC & Chem 7: 12/09/21 04:39 12/09/21 04:39 Labs: Laboratory Last Values WBC 7.5 K/mm3 (4.5-11.0) 12/09/21 04:39 RBC 3.44 M/mm3 (3.65-5.03) L 12/09/21 04:39 Hgb 10.3 gm/dl (11.8-15.2) L 12/09/21 04:39 Hct 30.7 % (35.5-45.6) L 12/09/21 04:39 MCV 89 fl (84-94) 12/09/21 04:39 MCH 30 pg (28-32) 12/09/21 04:39 MCHC 34 % (32-34) 12/09/21 04:39 RDW 15.9 % (13.2-15.2) H 12/09/21 04:39 Plt Count 193 K/mm3 (140-440) 12/09/21 04:39 Lymph % (Auto) 25.8 % (13.4-35.0) 12/09/21 04:39 [place] % (Auto) 11.4 % (0.0-7.3) H 12/09/21 04:39 Eos % (Auto) 2.5 % (0.0-4.3) 12/09/21 04:39 Baso % (Auto) 0.5 % (0.0-1.8) 12/09/21 04:39 Lymph # (Auto) 1.9 K/mm3 (1.2-5.4) 12/09/21 04:39 [place] # (Auto) 0.9 K/mm3 (0.0-0.8) H 12/09/21 04:39 Eos # (Auto) 0.2 K/mm3 (0.0-0.4) 12/09/21 04:39 Baso # (Auto) 0.0 K/mm3 (0.0-0.1) 12/09/21 04:39 Seg Neutrophils % 59.8 % (40.0-70.0) 12/09/21 04:39 Seg Neutrophils # 4.5 K/mm3 (1.8-7.7) 12/09/21 04:39 Sodium 140 mmol/L (137-145) 12/09/21 04:39 Potassium 2.9 mmol/L (3.6-5.0) L* 12/09/21 04:39 Chloride 106.9 mmol/L (98-107) 12/09/21 04:39 Carbon Dioxide 25 mmol/L (22-30) 12/09/21 04:39 Anion Gap 11 mmol/L 12/09/21 04:39 BUN 12 mg/dL (9-20) 12/09/21 04:39 Creatinine 0.7 mg/dL (0.8-1.3) L 12/09/21 04:39 Estimated GFR > 60 ml/min 12/09/21 04:39 BUN/Creatinine Ratio 17 % 12/09/21 04:39 Glucose 96 mg/dL (75-100) 12/09/21 04:39 Lactic Acid 1.90 mmol/L (0.7-2.0) 12/06/21 11:28 Calcium 8.7 mg/dL (8.4-10.2) 12/09/21 04:39 Total Bilirubin 0.40 mg/dL (0.1-1.2) 12/05/21 08:10 AST 20 units/L (5-40) 12/05/21 08:10 ALT 10 units/L (7-56) 12/05/21 08:10 Alkaline Phosphatase 123 units/L (35-129) 12/05/21 08:10 Total Protein 8.3 g/dL (6.3-8.2) H 12/05/21 08:10 Albumin 4.3 g/dL (3.9-5) 12/05/21 08:10 Albumin/Globulin Ratio 1.1 % 12/05/21 08:10 Urine Color Straw (Yellow) 12/05/21 10:53 Urine Turbidity Cloudy (Clear) 12/05/21 10:53 Urine pH 8.0 (5.0-7.0) H 12/05/21 10:53 Ur Specific [place] 1.010 (1.003-1.030) 12/05/21 10:53 Urine Protein 30 mg/dl mg/dL (Negative) 12/05/21 10:53 Urine Glucose (UA) Negative mg/dL (Negative) 12/05/21 10:53 Urine Ketones Negative mg/dL (Negative) 12/05/21 10:53 Urine Blood Small (Negative) A 12/05/21 10:53 Urine Nitrite Positive (Negative) 12/05/21 10:53 Urine Bilirubin Negative (Negative) 12/05/21 10:53 Urine Urobilinogen < 2.0 mg/dL (<2.0) 12/05/21 10:53 Ur Leukocyte Esterase Moderate (Negative) 12/05/21 10:53 Urine WBC (Auto) 147.0 /HPF (0.0-6.0) H 12/05/21 10:53 Urine RBC (Auto) 69.0 /HPF (0.0-6.0) 12/05/21 10:53 U Epithel Cells (Auto) 1.0 /HPF (0-13.0) 12/05/21 10:53 Urine Mucus Few /HPF 12/05/21 10:53 Blood Type O POSITIVE 12/05/21 21:00 Antibody Screen Negative 12/05/21 21:00 Microbiology: Microbiology 12/05/21 08:10 Peripheral/Venous Blood Culture - Preliminary NO GROWTH AFTER 72 HOURS Snyder/IV: Voiding Method Condom Catheter Active Medications - Current Medications Current Medications: Generic Name Dose Route Start Last Admin Trade Name Freq PRN Reason Stop Dose Admin Acetaminophen 650 mg 12/05/21 13:19 Acetaminophen 325 Mg Tab PO Q4H PRN Pain MILD(1-3)/Fever >100.5/BOYCE Albuterol 2.5 mg 12/05/21 13:19 Albuterol 2.5 Mg/3 Ml Nebu IH Q4HRT PRN Shortness Of Breath Heparin Sodium (Porcine) 5,000 unit 12/05/21 22:00 12/08/21 21:36 Heparin 5,000 Unit/1 Ml Vial SUB-Q 5,000 unit Q12HR MIHAELA Administration Hydromorphone HCl 0.5 mg 12/05/21 13:19 12/06/21 02:57 Hydromorphone 0.5 Mg/0.5 Ml Inj IV 0.5 mg Q23H PRN Administration Pain , Severe (7-10) Cefepime HCl 2 gm in 100 mls @ 200 mls/hr 12/05/21 14:00 12/09/21 01:37 Cefepime/Ns 2 Gm/100 Ml IV 200 mls/hr Q12H MIHAELA Administration Protocol Sodium Chloride 1,000 mls @ 75 mls/hr 12/06/21 01:30 12/08/21 18:43 Nacl 0.9% 1000 Ml IV 75 mls/hr DIRECT MIHAELA Administration Potassium Chloride 10 meq in 100 mls @ 100 mls/hr 12/09/21 07:00 12/09/21 06:21 Kcl 10meq/100ml IV 12/09/21 10:59 100 mls/hr Q1H MIHAELA Administration Ondansetron HCl 4 mg 12/05/21 13:19 Ondansetron 4 Mg/2 Ml Inj IV Q8H PRN Nausea And Vomiting Oxycodone/Acetaminophen 1 tab 12/05/21 13:19 12/08/21 22:59 Oxycodone /Acetaminophen 5-325mg Tab PO 1 tab Q6H PRN Administration Pain, Moderate (4-6) Sodium Chloride 10 ml 12/05/21 22:00 12/08/21 21:37 Sodium Chloride 0.9% 10 Ml Flush Syringe IV 10 ml BID MIHAELA Administration Sodium Chloride 10 ml 12/05/21 13:19 Sodium Chloride 0.9% 10 Ml Flush Syringe IV PRN PRN LINE FLUSH Nutrition/Malnutrition Assess - Dietary Evaluation Nutrition/Malnutrition Findings: Nutrition Notes Start: 12/06/21 14:05 Freq: Status: Active Protocol: Document 12/06/21 14:05 CHICO (Rec: 12/06/21 14:13 CHICO [id number]) Nutrition Notes Need for Assessment generated from: unattended ground sensor specialist,MST Initial or Follow up Assessment Current Diagnosis Sepsis,Hypertension,Heart Failure,Stroke Other Pertinent Diagnosis UTI, Vascular dementia, (L) hemiparesis, Schizophrenia, MICHELLE Current Diet Cardiac Labs/Tests BG 170 Pertinent Medications NS at 75ml/hr Height 5 ft 10.8 in Weight 63.8 kg [place] Body Weight (kg) 77.63 BMI 19.7 Weight Status Underweight Subjective/Other Information Pt screened for malnutrition risk. Pt from [place]. He consumed 50% of two meals today. Percent of energy/protein needs met: 66% energy 55% pro Burn Absent Trauma Absent Skin Integrity/Comment Mateus score: 13 Current % PO Fair (50-74%) Reduced Service Bar Cashier Strength Measurably Reduced (severe) #1 Nutrition Diagnosis Underweight Etiology advanced age, vascular dementia As Evidenced by Signs and Symptoms BMI 19.7 Is patient on ventilator? No Is Patient Ambulatory and/or Out of Bed No REE-([place]-StErnie Kolb-confined to bed) [phone] Kcal/Kg value to use for calculation 30 Approximate Energy Requirements Using 1914 kcal/Kg Calculation Used for Recommendations Kcal/kg Additional Notes Pro needs 1.2-1.5g/k-96g/ day Fluid needs 1ml/kcal Nutrition Intervention Change Diet Order: Continue current diet order Add Supplement/Snack (indicate name/kcal Ensure Enlive BID /protein ) Provides kCal: 700 Provides Protein (gm) 40 Goal #1 PO intake of meals plus ONS to meet 100% energy and pro needs Goal #2 Wt maintenance and/or gain Anticipated Discharge Needs: Continue ONS 1-2 times daily for wt maintenance Follow-Up By: 12/09/21 Additional Comments F/U: intakes (meals/ONS)
[2021-12-09] MEDS ORDERED: POTASSIUM CHLORIDE ER 20 MEQ TAB PO NR (12:00)
[2021-12-09] MEDS: oxyCODONE /ACETAMINOPHEN 5-325MG TAB PO PRN ×2 (12:53→23:04)
[2021-12-10] MEDS: CEFEPIME/NS 2 GM/100 ML 2 GM/100 ML BAG IV SCH (01:37)
[2021-12-10] MEDS ORDERED: POTASSIUM CHLORIDE ER 20 MEQ TAB PO NR (08:00)
[2021-12-10] MEDS ORDERED: POTASSIUM CHLORIDE 10 MEQ 10 MEQ/100 ML BAG IV SCH (08:00)
[2021-12-10 08:20] LABS: Basophils # (Auto) 0.1 K/mm3 (0.0-0.1); Basophils % (Auto) 0.8 % (0.0-1.8); Eosinophils # (Auto) 0.2 K/mm3 (0.0-0.4); Eosinophils % (Auto) 2.2 % (0.0-4.3); Hematocrit 32.3 % (35.5-45.6); Hemoglobin 10.8 gm/dl (11.8-15.2); Lymphocytes # (Auto) 2.1 K/mm3 (1.2-5.4); Lymphocytes % (Auto) 28.8 % (13.4-35.0); Mean Corpuscular HGB Conc 34 % (32-34); Mean Corpuscular Volume 90 fl (84-94); Monocytes # (Auto) 0.7 K/mm3 (0.0-0.8); Monocytes % (Auto) 10.2 % (0.0-7.3); Platelet Count 225 K/mm3 (140-440); Red Blood Count 3.59 M/mm3 (3.65-5.03); Red Cell Distribution Width 15.6 % (13.2-15.2)
[2021-12-10 08:47] LABS: BUN/Creatinine Ratio 13; Blood Urea Nitrogen 9 mg/dL (9-20); Hemolysis Index 2
[2021-12-10] MEDS: HEPARIN 5,000 UNIT/1 ML VIAL SUB-Q SCH (10:10)
[2021-12-10] MEDS: oxyCODONE /ACETAMINOPHEN 5-325MG TAB PO PRN (10:21)
--- NOTE | 2021-12-10 11:37 | Discharge Summary ---
Providers - Providers Date of Admission: 12/05/21 13:19 Date of discharge: 12/10/21 Attending physician: RAFAEL HOFFMAN MD Primary care physician: CHECK AND TRANSFER BEADER Hospitalization Reason for admission: flank pain Condition: Fair Hospital course: 71 YO Male Group Home Facility Resident at [facility] with Vascular Dementia, Cerebral Atherosclerosis, CVA with LHP, Schizophrenia, MICHELLE, HTN, CHF presents to ED for evaluation of flank pain the day ORDER ADMINISTRATOR. EMS was notified and upon arrival the patient was found to be in distress and subsequent transported to [facility] for further care and evaluation of the aforementioned symptoms. The patient was seen and evaluated in the emergency department. All lab and imaging studies reviewed. Patient found to have sepsis suspected secondary to urinary tract infection. Patient admitted to medical floor and initiated on sepsis protocol. Sepsis POA UTI Hypokalemia Vascular dementia Cerebral atherosclerosis 12/06/2021. Patient admitted with sepsis and UTI. We will follow-up blood and urine cultures. Continue IV antibiotics and monitor closely. Patient does have lactic acidosis as well as leukocytosis. Continue to monitor laboratories for improvement 12/07/2021. Continue IV antibiotics and follow-up blood cultures. Blood culture negative x24 hours. Lactic acidosis resolved. Follow-up urine culture 12/08/2021. Continue IV antibiotics and follow-up cultures. Blood cultures are negative x72 hours. Anticipate discharge back to [facility] in a.m. 12/09/2021. Patient to have antibiotics completed today. However, patient with hypokalemia. Replete potassium and anticipate discharge back to [facility] if hyperkalemia resolved. 12/10: all medical issues resolved. potassium improved on follow up BMP to 3.5. Additional KCL 40 MEQ PO x 1 admin. Can be dc to [facility]. completed abx for uti treatment, no discharge abx needed. Disposition: 30 STILL A PATIENT Final Discharge Diagnosis (Prints w/discharge instructions): Sepsis POA. UTI. Hypokalemia. Vascular dementia. Cerebral atherosclerosis Time spent for discharge: 35 Core Measure Documentation - Palliative Care Palliative Care/ Comfort Measures: Not Applicable - Core Measures Any of the following diagnoses?: none Exam - Physical Exam Narrative exam: General appearance: Present: no acute distress - EENT Eyes: Present: PERRL, EOM intact ENT: hearing intact, clear oral mucosa, dentition normal - Neck Neck: Present: supple, normal ROM - Respiratory Respiratory effort: normal Respiratory: bilateral: CTA - Cardiovascular Rhythm: regular Heart Sounds: Present: S1 & S2. Absent: gallop, rub - Extremities Extremities: no ischemia, No edema, Full ROM - Abdominal General gastrointestinal: soft, non-tender, non-distended, normal bowel sounds - Integumentary Integumentary: Present: clear, warm, dry - Neurologic Neurologic: CNII-XII intact, moves all extremities - Constitutional Vitals: Temp Pulse Resp BP Pulse Ox 98.5 F 63 18 150/82 98 12/09/21 05:01 12/09/21 05:01 12/10/21 02:00 12/09/21 05:01 12/10/21 02:00 Plan Follow up with: PRIMARY CAREMD [Primary Care Provider] - 3-5 Days
[2021-12-10 13:27] VITALS: BP 157/90
== END 2021-12-10 17:16 | DRG 872 ==
LOC: ED 07:19 → 3A 13:19
PROVIDERS: ADMIT Internal Medicine; ATTEND Internal Medicine
DX: A41.9 Sepsis, unspecified organism (principal); N39.0 Urinary tract infection, site not specified; I69.354 Hemiplegia and hemiparesis following cerebral infarction affecting left non-dominant side; I50.22 Chronic systolic (congestive) heart failure; Z20.822 Contact with and (suspected) exposure to COVID-19; I11.0 Hypertensive heart disease with heart failure; F20.9 Schizophrenia, unspecified; F01.50 Vascular dementia, unspecified severity, without behavioral disturbance, psychotic disturbance, mood disturbance, and anxiety; I67.2 Cerebral atherosclerosis; F41.1 Generalized anxiety disorder; E87.6 Hypokalemia; Z82.49 Family history of ischemic heart disease and other diseases of the circulatory system; Z83.3 Family history of diabetes mellitus
CPT/HCPCS: 36415; 74176; 80048; 80053; 81001; 82140; 85025; 86850; 86900; 86901; 87040; 94760; G0378; J0692; J0696; J1170; J1644; J3480; J7030; U0003